=== PATIENT | male | born 1955 | race Caucasian/White ===

== ENCOUNTER 2020-02-23 18:26 | Inpatient (IN) ==
[2020-02-23] MEDS ORDERED: GLUCAGON FOR INJ 1 MG VIAL SQ PRN (21:45)
[2020-02-23] MEDS ORDERED: DEXTROSE 50% 50 ML SYRINGE IV PRN (21:45)
[2020-02-23] MEDS ORDERED: CARBOHYDRATES FOR HYPOGLYCEMIA PO PRN (21:45)
[2020-02-23] MEDS ORDERED: GLUCOSE 10 TABS/TUBE PO PRN (21:45)
[2020-02-23] MEDS ORDERED: GLUCOSE 40% GEL 15 GM TUBE PO PRN (21:45)
--- NOTE | 2020-02-23 21:59 | History & Physical Report ---
Date of Service February 23, 2020 Assessment & Plan (1) Diabetic peripheral neuropathy: Pt is a 64yo male with a PMHx of DMII with R BKA, CKD on peritoneal dialysis, chronic hyperphosphatemia, gout, myoconus and ?Hep C who presents as a transfer from [facility] with septic shock and the need for dialysis after presenting with weakness for the last 3 days. Sepsis -Per transfer note, pt required fluid bolus and pressor support at [facility], received doses of Rocephin and Vancomycin -Infectious source unclear: chest XR unremarkable except for cardiomegaly, Blood Cx drawn with no growth yet, urine uncollected, no diarrhea, 1 unhealing lesion on R BKA stump with mild erythema -On admission here, pt admits to dysuria, has small open lesion on R BKA stump, tachycardic, elevated WBC, normotensive -Chest XR from [facility]: "stable, moderate cardiomegaly with mild vascular congestion. Minimal interstitial pattern w/o consolidation or effusion" -UA pending with reflex culture -repeat blood Cx x2 ordered -lactate currently within normal limits, procalcitonin elevated at 1.85 -started on Daptomycin and Cefepime (renally dosed) for empiric treatment -wound care consult placed for R BKA stump lesion Acute on chronic CKD -Pt unsure of Cr baseline, states he does peritoneal dialysis at home himself every night -[facility] notes state Cr was 10.8 there, currently 11.4 on repeat here -Potassium WNL, Phosphorus elevated to 6.8 (see below) -started on NSS @ 80mls -nephrology consult placed Elevated Troponins -troponins currently elevated to 0.068, was WNL at [facility] -EKG with sinus tachycardia, ?first degree block -suspect increased trops secondary to demand ischemia in the setting of septic shock at [facility] -will trend trops q6h -echo pending -continue home aspirin 81mg, atorvastatin 20mg daily Macrocytosis -MCV >100 -pending AM folate and B12 levels Hyperphosphatemia -Phosphate elevated to 6.8 -continue home phosphate binders- calcium acetate 1334mg PO TID -sevelamer carbonate nonformulary DMII with R BKA -Pt states he uses insulin at home, question of compliance -Hx of R BKA in 2003 -HgbA1c pending -ISS -continue home gabapentin 800mg qhs for peripheral neuropathy ?Hep C noted on transfer paperwork -Liver enzymes WNL -Pt states he received Hepatitis shots due to his dialysis but does not believe he has this Hx -Hepatitis panel ordered with AM labs Hx of myoclonus -affects his hands mostly -continue home Keppra 250mg BID -follows with Dr. Reich Hx of gout -continue home allopurinol 100mg daily FEN/GI: NSS@80mls/hr, Dialysis/renal/lactose intolerant/DMII diet DVT prophylaxis: SCDs currently, consider heparin (given CKD) if Hgb improves CODE STATUS: Full Dispo: PCU/tele Admission and Anticipated Discharge Date Admission Date: February 23, 2020 History of Present Illness Primary Care Provider: RICK SHAIKH Pt is a 64yo male with a PMHx of DMII with R BKA, CKD on peritoneal dialysis, chronic hyperphosphatemia, gout, myoconus and ?Hep C who presents as a transfer from [facility] with septic shock and the need for dialysis after presenting with weakness for the last 3 days. Pt states he had been receiving PT recently and felt like his mobility had improved significantly as a result of that. However, for the last 3 days he has been feeling very weak and could not make it to the bathroom today so he presented to [facility]. States he has been having some dysuria with lower abdominal pain as well as this nonhealing ulcer on his right stump, has a right below the knee amputation. Has not taken his medications for the last day or so. Lives alone at home, moves around with his wheelchair. Unable to use his walker. States a close female friend checks in on him. No alcohol use, stopped smoking 23 years ago, no recreational drug use. Allergies Allergy/AdvReac Type Severity Reaction Status Date / Time amoxicillin [From Augmentin] Allergy Verified 12/08/19 11:45 clavulanic acid Allergy Verified 12/08/19 11:45 [From Augmentin] lactose Allergy Verified 12/08/19 11:45 morphine Allergy Verified 12/08/19 11:45 sulfamethoxazole Allergy Verified 12/08/19 11:45 [From Bactrim] trimethoprim [From Bactrim] Allergy Verified 12/08/19 11:45 primidone AdvReac Severe dizziness Verified 12/08/19 11:45 Home Medications Home Medications Medication Instructions Recorded Confirmed Type acetaminophen 325 mg capsule 650 mg PO ONCE PRN cap 04/06/19 12/08/19 History allopurinol 100 mg tablet 100 mg PO DAILY 04/06/19 12/08/19 History atorvastatin 20 mg tablet 20 mg PO DAILY 04/06/19 12/08/19 History pentoxifylline 400 mg 400 mg PO BID 04/06/19 12/08/19 History tablet,extended release vitamin B complex-vitamin C-folic 1 tab PO DAILY 04/06/19 12/08/19 History acid 0.8 mg tablet aspirin 81 mg tablet,delayed 81 mg PO DAILY 04/18/19 12/08/19 History release bisacodyl 5 mg PO DAILY 04/18/19 12/08/19 History calcium acetate(phosphat bind) 667 1,334 mg PO TID cap 04/18/19 12/08/19 History mg capsule gabapentin 800 mg tablet 800 mg PO HS tab 04/18/19 12/08/19 History insulin detemir U-100 100 unit/mL 30 - 40 units SQ .COMPLEX ml 04/18/19 12/08/19 History (3 mL) subcutaneous pen insulin lispro protamine-lispro 14 - 30 units SQ TID ml 04/18/19 12/08/19 History 100 unit/mL (50-50) subcutaneous susp sevelamer carbonate 800 mg tablet 800 mg PO TID 04/18/19 12/08/19 History sucroferric oxyhydroxide 500 mg 500 mg PO TID #270 tab 10/11/19 12/08/19 Rx chewable tablet nystatin 100,000 unit/gram topical 1 appln TOP TID #30 gm 01/03/20 Rx cream levetiracetam 500 mg tablet 250 mg PO BID tab 01/08/20 History Past Med/Surg History Medical History (Updated 02/24/20 @ 12:00 by Guerita Lozano MD) Amputation of right lower extremity below knee Anemia due to chronic kidney disease Back pain Diabetes Dialysis patient End-stage renal disease (ESRD) Gout Nerve pain Secondary hyperparathyroidism of renal origin Shoulder pain Surgical History S/P tonsillectomy Family History Grandmother (Paternal) Alzheimer disease Father Diabetes Other Prostate cancer Unknown family medical history Social History Smoking Status: Never smoker Hx Alcohol Use: No Hx Substance Use: No Preferred Language: Uzbek Barrel Assembler Required: No Beliefs That Will Affect Care: None Current Living Situation: Alone Feels Safe at Home: Yes Safety Concerns: Feels Safe At This Time Review of Systems Constitutional: + fever, + fatigue and + weakness; no chills and no sweats Eyes: no worsening vision Ear, Nose, Mouth, Throat: no nasal congestion and no sore throat Respiratory: + chest congestion and + dyspnea; no cough and no dyspnea on exertion Cardiovascular: no chest pain, no palpitations, no syncope and no edema Gastrointestinal: + abdominal pain; no nausea, no vomiting, no constipation, no diarrhea/loose stools and no blood in stools Genitourinary: + dysuria; no hematuria Musculoskeletal: + neck pain; no back pain Integumentary: + new lesions Neurologic: + tingling; no numbness, no headache(s) and no confusion Psychiatric: no confusion Endocrine: + fatigue Physical Exam Physical Exam: General: Alert, oriented. No acute distress, obese gentleman laying in bed. Skin: ulcer with noted fatty tissue exposed noted on R BKA stump Psych: Appropriate mood and affect Neuro: No gross deficits HEENT: NC/AT Chest: Nontender to palpation. CV: RRR, Normal s1, s2. No murmurs appreciated, sounds decreased due to habitus Resp: Breath sounds clear bilaterally but decreased due to habitus, no increased effort of breathing. Abdomen: Soft, tender in lower abdominal quadrants. No guarding. Extremities: R leg amputated below the knee Results & Data Results & Data ([facility]) Vital Signs (Past 12 Hours) Vital Signs Temp Pulse Resp BP Pulse Ox 02/23/20 20:55 37.6 C H 92 H 19 122/67 96 Supervising Physician Co-Signing Physician Notes Attending addendum: I have physically seen this patient, have supervised the medical residents activities, and agree with the H&P unless as otherwise noted. Assessment and Plan: Sepsis/unclear source, most likely renal- Follow urine culture and sensitivity Follow blood culture and sensitivity Empiric daptomycin and cefepime IV NSS at 80 mils per hour Peritoneal dialysis per her protocol. Continue sevelamer, sucroferric, vitamin B complex, and calcium acetate. Consult nephrology Diabetes mellitus- Hold standing orders for lispro Continue Levemir at reduced dosing 20 units subcu daily, until appetite verified. Placed on Accu-Cheks before meals and at bedtime with NovoLog coverage per scale Right stump lesion- Consulting wound care Elevated troponin- 0.068 upon admission. The patient will be admitted to telemetry for serial cardiac enzymes, serial EKG's, cardiac rhythm monitoring and a 2-D echocardiogram with Dopplers. Continue aspirin and atorvastatin. PAD- Continue pentoxifylline Remainder orders and notations as noted Resident Activity Tracking Resident Involvement: Resident Care Provided Care Provided: Adult Hospital Medicine
[2020-02-23 22:12] LABS: Basophils # (auto) 0.03 K/uL (0-0.2); Basophils % (auto) 0.2 %; Eosinophils # (auto) 0.06 K/uL (0-0.5); Eosinophils % (auto) 0.3 %; Hematocrit (blood only) 29.4 % (42-52); Immature Granulocytes # (auto) 0.08 K/uL (0.00-0.02); Immature Granulocytes % (auto) 0.5 %; Lymphocytes # (auto) 1.17 K/uL (1.2-3.4); Lymphocytes % (auto) 6.6 %; Mean Corpuscular Volume 102.8 fL (80-100); Mean Platelet Volume 10.1 fL (7.4-10.4); Monocytes # (auto) 1.22 K/uL (0.11-0.59); Monocytes % (auto) 6.9 %; Neutrophils # (auto) 15.18 K/uL (1.4-6.5); Neutrophils % (auto) 85.5 %; Platelet Count 192 K/uL (130-400); RDW Coefficient of Variation 14.3 % (11.5-14.5); RDW Standard Deviation 52.9 fL (36.4-46.3); Red Blood Count 2.86 M/uL (4.7-6.1); White Blood Count 17.74 K/uL (4.8-10.8)
[2020-02-23 22:15] LABS: Base Excess ABG -4.7 mEq/L (-9-1.8); HCO3 ABG 20 mmol/L (19-24); Oxygen Saturation ABG 93.1 % (90-95); PCO2 ABG 38 mmHg (35-46); PO2 ABG 76 mmHg (80-95); pH ABG 7.35 (7.35-7.45)
[2020-02-23 22:16] LABS: Allen Test POS (Pos)
[2020-02-23] MEDS ORDERED: DAPTOMYCIN CONSULT ACTIVE PRN (22:26)
[2020-02-23 22:48] LABS: Albumin Globulin Ratio 0.5 (0.9-2); Albumin Level 2.1 gm/dl (3.4-5.0); BUN Creatinine Ratio 7.7 (10-20); Bilirubin,Total 0.3 mg/dl (0.2-1); Calcium 9.8 mg/dl (8.5-10.1); Creatinine Clr Calc Pharmacy 9.5 ml/min; Est GFR (African American) 4.8; Est GFR (Non-African American) 4.1; Globulin 4.6 gm/dl (2.5-4.0); Magnesium 2.3 mg/dl (1.8-2.4); Phosphorus 6.8 mg/dl (2.5-4.9); Potassium 4.8 mmol/L (3.5-5.1); Total Protein 6.7 gm/dl (6.4-8.2); Troponin I 0.068 ng/ml (0-0.045)
[2020-02-23] MEDS ORDERED: DAPTOmycin 425 MG in SYRINGE 0 ML IV ONE (23:00)
[2020-02-23] MEDS ORDERED: CEFEPIME CONSULT ACTIVE PRN (23:29)
[2020-02-23] MEDS: SODIUM CHLORIDE 0.9% 1000ML 1,000 ML IV SCH (23:38)
[2020-02-23 23:54] LABS: Troponin I 0.075 ng/ml (0-0.045)
[2020-02-24 00:18] LABS: INR 1.1 (0.9-1.1); Prothrombin Time 11.1 Seconds (9.0-12.0)
[2020-02-24] MEDS ORDERED: ACETAMINOPHEN 500 MG TAB PO PRN (00:47)
[2020-02-24] MEDS ORDERED: POLYETHYLENE (MIRALAX) 17 GM PACK PO PRN (00:47)
[2020-02-24] MEDS ORDERED: MELATONIN 3 MG TAB PO PRN (00:47)
[2020-02-24 03:59] LABS: Basophils # (auto) 0.03 K/uL (0-0.2); Basophils % (auto) 0.2 %; Eosinophils # (auto) 0.09 K/uL (0-0.5); Eosinophils % (auto) 0.5 %; Hematocrit (blood only) 29.1 % (42-52); Hemoglobin 9.4 g/dL (14.0-18.0); Immature Granulocytes # (auto) 0.06 K/uL (0.00-0.02); Immature Granulocytes % (auto) 0.4 %; Lymphocytes # (auto) 1.73 K/uL (1.2-3.4); Lymphocytes % (auto) 10.3 %; Mean Corpuscular Hemoglobin 34.3 pg (25-34); Mean Corpuscular Hgb Conc 32.3 g/dL (32-36); Mean Corpuscular Volume 106.2 fL (80-100); Mean Platelet Volume 10.1 fL (7.4-10.4); Monocytes # (auto) 0.93 K/uL (0.11-0.59); Monocytes % (auto) 5.5 %; Neutrophils % (auto) 83.1 %; Platelet Count 182 K/uL (130-400); RDW Coefficient of Variation 14.3 % (11.5-14.5); RDW Standard Deviation 54.8 fL (36.4-46.3); Red Blood Count 2.74 M/uL (4.7-6.1); White Blood Count 16.84 K/uL (4.8-10.8)
[2020-02-24 04:29] LABS: BUN Creatinine Ratio 8.5 (10-20); Calcium 10.1 mg/dl (8.5-10.1); Creatinine Clr Calc Pharmacy 9.5 ml/min; Est GFR (African American) 4.8; Est GFR (Non-African American) 4.1; Potassium 4.7 mmol/L (3.5-5.1)
[2020-02-24 07:31] LABS: Estimated Average Glucose 192 mg/dl; Hemoglobin A1C 8.3 % (4.5-5.6)
[2020-02-24] MEDS ORDERED: CEFEPIME 2,000 MG in SYRINGE 7.5 ML IV SCH (08:00)
[2020-02-24 08:44] LABS: Hepatitis B Surface Antigen Neg (Neg)
[2020-02-24 09:02] LABS: Folate (Folic Acid) > 24.00 ng/ml (>5.38); Vitamin B12 691 pg/ml (211-911)
[2020-02-24] MEDS: ASPIRIN 81 MG ECTAB PO SCH (09:03)
[2020-02-24] MEDS: CALCIUM ACETATE 667 MG CAP/TAB PO SCH ×2 (09:03→11:56)
[2020-02-24] MEDS: ATORVASTATIN 20 MG TAB PO SCH (09:04)
[2020-02-24] MEDS: allopurinoL 100 MG TAB PO SCH (09:04)
[2020-02-24] MEDS: levETIRAcetam 250 MG TAB PO SCH ×3 (09:04→20:05)
[2020-02-24] MEDS: INSULIN ASPART 100 UNITS/ML 3 ML PEN SC SCH ×4 (09:05→20:07)
[2020-02-24 09:13] LABS: Hepatitis C IgG 13Yrs+Old_Rflx Neg (Neg)
[2020-02-24 09:24] LABS: Appearance Urine Turbid (Clear); Bilirubin Urine Negative (Negative); Blood Urine 3+ (Negative); Color Urine Red; Glucose Urine UA Trace (Negative); Ketones Urine Negative (Negative); Leukocyte Esterase Urine 1+ (Negative); Nitrite Urine Negative (Negative); Protein Urine 3+ (Negative); Urobilinogen Urine Negative (Negative)
[2020-02-24 09:30] LABS: RBC Urine >30 /hpf (0-4); WBC Urine >30 /hpf (0-5)
[2020-02-24 09:31] LABS: Bacteria Urine 1+ (Negative)
--- NOTE | 2020-02-24 09:59 | XCELERA ---
[id number]
[2020-02-24] MEDS ORDERED: Nursing to Pharmacy Communication SCH (11:45)
[2020-02-24] MEDS: SODIUM CHLORIDE 0.9% 1000ML 1,000 ML IV SCH (11:46)
--- NOTE | 2020-02-24 12:04 | Nephrology Consultation ---
Date of Consultation February 24, 2020 Assessment & Plan (1) End-stage renal disease (ESRD): ESRD on PD, admitted with generalized weakness, fever and concern for sepsis. Currently being treated with about broad-spectrum antibiotic, no clear source identified except small nonhealing ulcer at right BKA stump -- unlikely peritonitis as no significant abdominal pain, peritoneal effluent has been clear. -- will check PD fluid Gram stain and culture sensitivity -- start on peritoneal dialysis tonight as his regular schedule and prescription -- continue on phosphate binder -- discontinue IV fluid, dose medications for GFR less than 10 -- BHARATHI for hemoglobin less than 10 will follow Thank you for allowing me to participate in your patient's care. It was a pleasure to see Declan (2) Anemia due to chronic kidney disease: (3) Secondary hyperparathyroidism of renal origin: History of Present Illness Reason for Consultation: End-stage Kidney disease on peritoneal dialysis. Attending Physician: Brayden Gonzalez, DO History of Present Illness Declan Sanz is a 64-year-old gentlemen with past medical history significant for end-stage kidney disease on peritoneal dialysis, diabetes, hypertension left right BKA presented to the hospital with Generalized weakness. Nephrology consult was requested to manage peritoneal dialysis while inpatient. Declan presented to outside hospital 2 days ago with generalized weakness for 3 days. On admission he was found to be hypotensive and there was concern for sep tic shock with unclear source of infection. He has history of right BKA with nonhealing ulcer and that was considered as a presumed source of infection. he is currently on broad-spectrum antibiotic. Blood pressure seems to have stabilized. Chest x-ray unremarkable. Culture results are pending. Has end-stage kidney disease, has been on dialysis for last almost 3 years, most likely secondary to diabetic nephropathy. He has left brachiocephalic AV fistula. Was on hemodialysis for almost 3 years, switched to peritoneal dialysis since early 2019. has been doing dialysis regularly. Did have any problem with peritoneal dialysis recently, no history of peritonitis. Peritoneal dialysis effluent has been clear. No significant abdominal pain or constipation. History of right BKA. Allergies Allergy/AdvReac Type Severity Reaction Status Date / Time amoxicillin [From Augmentin] Allergy Verified 12/08/19 11:45 clavulanic acid Allergy Verified 12/08/19 11:45 [From Augmentin] lactose Allergy Verified 12/08/19 11:45 morphine Allergy Verified 12/08/19 11:45 sulfamethoxazole Allergy Verified 12/08/19 11:45 [From Bactrim] trimethoprim [From Bactrim] Allergy Verified 12/08/19 11:45 primidone AdvReac Severe dizziness Verified 12/08/19 11:45 Home Medications Home Medications Medication Instructions Recorded Confirmed Type acetaminophen 325 mg capsule 650 mg PO ONCE PRN cap 04/06/19 12/08/19 History allopurinol 100 mg tablet 100 mg PO DAILY 04/06/19 12/08/19 History atorvastatin 20 mg tablet 20 mg PO DAILY 04/06/19 12/08/19 History pentoxifylline 400 mg 400 mg PO BID 04/06/19 12/08/19 History tablet,extended release vitamin B complex-vitamin C-folic 1 tab PO DAILY 04/06/19 12/08/19 History acid 0.8 mg tablet aspirin 81 mg tablet,delayed 81 mg PO DAILY 04/18/19 12/08/19 History release bisacodyl 5 mg PO DAILY 04/18/19 12/08/19 History calcium acetate(phosphat bind) 667 1,334 mg PO TID cap 04/18/19 12/08/19 History mg capsule gabapentin 800 mg tablet 800 mg PO HS tab 04/18/19 12/08/19 History insulin detemir U-100 100 unit/mL 30 - 40 units SQ .COMPLEX ml 04/18/19 12/08/19 History (3 mL) subcutaneous pen insulin lispro protamine-lispro 14 - 30 units SQ TID ml 04/18/19 12/08/19 History 100 unit/mL (50-50) subcutaneous susp sevelamer carbonate 800 mg tablet 800 mg PO TID 04/18/19 12/08/19 History sucroferric oxyhydroxide 500 mg 500 mg PO TID #270 tab 10/11/19 12/08/19 Rx chewable tablet nystatin 100,000 unit/gram topical 1 appln TOP TID #30 gm 01/03/20 Rx cream levetiracetam 500 mg tablet 250 mg PO BID tab 01/08/20 History Patient History Medical History (Updated 02/24/20 @ 12:00 by Guerita Lozano MD) Amputation of right lower extremity below knee Anemia due to chronic kidney disease Back pain Diabetes Dialysis patient End-stage renal disease (ESRD) Gout Nerve pain Secondary hyperparathyroidism of renal origin Shoulder pain Surgical History S/P tonsillectomy Family History Grandmother (Paternal) Alzheimer disease Father Diabetes Other Prostate cancer Unknown family medical history Social History Smoking Status: Never smoker Hx Alcohol Use: No Hx Substance Use: No Preferred Language: Macedonian Blending Coordinator Required: No Beliefs That Will Affect Care: None Current Living Situation: Alone Feels Safe at Home: Yes Safety Concerns: Feels Safe At This Time Review of Systems Review of Systems: All systems reviewed & are unremarkable except as noted in HPI & below Physical Exam Constitutional: WD/WN, vitals as above no acute distress Eyes: PERRL, conjunctivae normal, anicteric sclerae ENMT: external ear and nose normal, oropharynx normal Ears: no hearing impairment Neck: trachea midline Respiratory: normal respiratory effort, lungs clear to auscultation no cough Auscultation: no crackles, no rales and no wheezes Cardiovascular: RRR, no murmur, no edema Extremities: + AV fistula ( L BC AVF with thrill and bruit. PD cath site clean, no tenderness) Gastrointestinal (Abdomen): normal bowel sounds, soft, nontender, no hepato splenomegaly Percussion/Palpation: abdomen nontender, no guarding and abdomen not rigid Musculoskeletal: Rt BKA Skin: no rashes, warm and dry Neurologic: moves all extremities and awake Psychiatric: A+Ox3, euthymic affect Results & Data ([facility]) Vital Signs (Past 12 Hours) Vital Signs Temp Pulse Pulse Pulse Resp BP BP 02/24/20 11:10 37.9 C H 100 H 20 115/75 02/24/20 08:00 93 H 02/24/20 07:52 36.8 C 100 H 20 111/60 02/24/20 04:06 36.9 C 97 H 18 109/56 L 02/23/20 23:58 37.1 C 106 H 20 106/71 Pulse Ox 02/24/20 11:10 92 02/24/20 08:00 02/24/20 07:52 98 02/24/20 04:06 96 02/23/20 23:58 99 PG Care Time/CCT Total # of Minutes Spent Total Time Spent with Patient: Total time spent is greater than 50% in coordination of care (as documented) at patient's floor/unit and/or counseling patient: Coding Level of Care Code 05859 Inpt Consult Level 5 Diagnoses End-stage renal disease (ESRD) N18.6 Anemia due to chronic kidney disease N18.9; D63.1 Secondary hyperparathyroidism of renal origin N25.81
[2020-02-24 14:31] LABS: Appearance Peritoneal Fluid CLEAR; Basophils, Fluid 0 %; Color Peritoneal Fluid YELLOW; Eosinophils, Fluid 0 %; Lymphocytes, Fluid 6 %; Mono,Macrophage,Mesothelial 49 %; Neutrophils, Fluid 45 %; RBC Peritoneal Fluid (A) < 3000 /uL; WBC Peritoneal Fluid (A) 295 /ul (0-300)
[2020-02-24 15:19] LABS: Hepatitis B Surface Ab Quant 481.96 mIU/mL (>or=10mIU/mL Immune); Hepatitis B Surface Antibody Immune
--- NOTE | 2020-02-24 15:54 | Hospitalist Progress Note ---
Date of Service February 24, 2020 Assessment & Plan (1) Diabetic peripheral neuropathy: Patient is a 64yo male with a PMHx of DMII with R BKA, CKD on peritoneal dialysis, chronic hyperphosphatemia, and gout who presents as a transfer from [facility] with septic shock and the need for dialysis after presenting with weakness for the last 3 days. Clinically improving but without clear source of infection. Will consider discharge upon continued clinical improvement, downtrending WBCs, adequate PO intake, and strength/ability to perform ADLs (likely sometime early next week). Sepsis -per transfer note, pt required fluid bolus and pressor support at [facility], received doses of rocephin and vancomycin -infectious source seems likely to be UTI; UA was dirty, urine culture and sensitivities pending -other infectious source investigation: chest XR unremarkable except for cardiomegaly, blood cultures drawn with no growth yet, no diarrhea, 1 unhealing lesion on R BKA stump with mild erythema -on admission here, pt admits to dysuria, has small open lesion on R BKA stump, tachycardic, elevated WBC, normotensive -f/u blood cultures -lactate currently within normal limits, procalcitonin elevated at 1.85 -started on daptomycin and cefepime (renally dosed) for empiric treatment, planning to narrow treatment upon return of cultures/sensitivities -wound care consult placed for R BKA stump lesion Acute on chronic CKD -patient unsure of Cr baseline, states he does peritoneal dialysis at home himself every night -[facility] notes state Cr was 10.8 there, currently 11.4 on repeat here -potassium WNL, Phosphorus elevated to 6.8 (see below) -nephrology consult recommended starting peritoneal dialysis tonight Elevated troponins -troponins elevated on admission to 0.075, then downtrended to 0.056 -EKG with sinus tachycardia without signs of ischemia -suspect increased troponin secondary to demand ischemia in the setting of septic shock at [facility] -continue home aspirin 81mg, atorvastatin 20mg daily Macrocytosis -MCV >100 -pending AM folate and B12 levels Hyperphosphatemia -phosphate elevated to 6.8 -continue home phosphate binders- calcium acetate 1334mg PO TID -sevelamer carbonate nonformulary DMII with R BKA -patient states he uses insulin at home, question of compliance -Hx of R BKA in 2003 -HgbA1c pending -ISS -lantus 10 units bid, will reassess glucose control in the morning -continue home gabapentin 800mg qhs for peripheral neuropathy Question of Hep C noted on transfer paperwork -liver enzymes WNL -patient reports he received hepatitis shots due to his dialysis but does not believe he has this history -awaiting full results of hepatitis panel History of myoclonus -affects his hands -continue home Keppra 250mg bid -follows with Dr. Reich History of gout -continue home allopurinol 100mg qd FEN/GI: NSS@80mls/hr, dialysis/renal/lactose intolerant/DMII diet DVT prophylaxis: SCDs currently, consider heparin (given CKD) if Hgb improves CODE STATUS: full code Dispo: PCU/tele Present on Admission?: Yes Admission and Anticipated Discharge Date Admission Date: February 23, 2020 Supervising Physician Co-Signing Physician Notes I personally examined the patient and verified all cr points of history and exam, discussed case, and agree with decision making with Dr Wolfe. feeling much better, stronger notes he did have dysuria for ?a week or so prior to getting so weak viatls noted nad heent nc at mmm R stump ulcer present but no surrounding erythema no abdominal tenderness breathing unlabored no conversational dyspnea sepsis - most likely UTI given sx + UA, no other areas seem suspicious. until fluid can be checked just because sometimes peritonitis can be sutble - will keep dapto plus cefepime, but once that has been checked, probably can drop to gram negative coverage only - await urine culture stump ulcer - appears that local wound care appropriate for this- would want outpt wound clinic set up otherwise as above Subjective Patient feels "better" this morning compared to yesterday and overnight. Reports abdominal pressure / mild pain which he attributes to abdominal fullness 2/2 delayed peritoneal dialysis. Reports he undergoes peritoneal dialysis nightly from home. Also endorses right shoulder and left knee pain although he says this is unchanged from his baseline. Denies chest pain, shortness of breath, lightheadedness, dizziness, nausea, vomiting, fever, sweats, chills, or other symptoms. Review of Systems Constitutional: no fever, no chills and no sweats Cardiovascular: no chest pain, no dyspnea and no palpitations Gastrointestinal: + abdominal pain (mild generalized abdominal pressure); no nausea, no vomiting, no constipation and no diarrhea/loose stools Physical Exam Constitutional: + well hydrated and + obese; no acute distress Respiratory: normal respiratory effort; no labored breathing Auscultation: lungs clear to auscultation bilaterally Cardiovascular: Rate/Rhythm: regular rhythm Heart Sounds: no murmur Gastrointestinal (Abdomen): Inspection/Auscultation: normal bowel sounds; abdomen not distended Percussion/Palpation: + abdomen tender (mild generalized tenderness (2/2 needing peritoneal dialysis, per patient)) Skin: Mild rash appreciated underneath pannus; clean, dry bandage on distal end of stump over reported nonhealing ulcer Psychiatric: A+Ox3, euthymic affect Results & Data Results & Data ([facility]) Vital Signs (Past 12 Hours) Vital Signs Temp Pulse Pulse Pulse Resp BP Pulse Ox 02/24/20 15:26 36.6 C 99 H 17 104/68 97 02/24/20 11:10 37.9 C H 100 H 20 115/75 92 02/24/20 08:00 93 H 02/24/20 07:52 36.8 C 100 H 20 111/60 98 02/24/20 04:06 36.9 C 97 H 18 109/56 L 96 Resident Activity Tracking Resident Involvement: Resident Care Provided Care Provided: Adult Hospital Medicine
[2020-02-24] MEDS ORDERED: SEVELAMER HCL 800 MG TABLET PO SCH (17:00)
[2020-02-24] MEDS ORDERED: EPOETIN ALFA 20,000 UNITS/ML VIAL SQ ONE (17:00)
--- NOTE | 2020-02-24 18:17 | Billing Data ---
Date of Service February 24, 2020 Coding Level of Care Code 07151 Subseq Hosp Care Lvl 3
[2020-02-24] MEDS: GABAPENTIN 800 MG TAB PO SCH (20:06)
[2020-02-24] MEDS: INSULIN GLARGINE SOLOSTAR 100 UNITS/ML 3 ML PEN SC SCH (20:07)
--- NOTE | 2020-02-25 03:03 | Billing Data ---
Date of Service February 25, 2020 Coding Level of Care Code 62640 Initial Inpt Care Lvl 3
[2020-02-25 04:26] LABS: Hepatitis A Antibody IgM NON-REACTIVE (NON-REACTIVE); Hepatitis B Core Antibody IgM NON-REACTIVE (NON-REACTIVE)
[2020-02-25 06:04] LABS: Basophils # (auto) 0.02 K/uL (0-0.2); Basophils % (auto) 0.2 %; Eosinophils # (auto) 0.16 K/uL (0-0.5); Eosinophils % (auto) 1.2 %; Hematocrit (blood only) 28.9 % (42-52); Hemoglobin 9.6 g/dL (14.0-18.0); Immature Granulocytes # (auto) 0.07 K/uL (0.00-0.02); Immature Granulocytes % (auto) 0.5 %; Lymphocytes # (auto) 1.19 K/uL (1.2-3.4); Lymphocytes % (auto) 9.2 %; Mean Corpuscular Hgb Conc 33.2 g/dL (32-36); Mean Corpuscular Volume 102.5 fL (80-100); Mean Platelet Volume 9.8 fL (7.4-10.4); Monocytes # (auto) 0.89 K/uL (0.11-0.59); Monocytes % (auto) 6.9 %; Neutrophils # (auto) 10.61 K/uL (1.4-6.5); Platelet Count 177 K/uL (130-400); RDW Coefficient of Variation 14.3 % (11.5-14.5); RDW Standard Deviation 53.5 fL (36.4-46.3); Red Blood Count 2.82 M/uL (4.7-6.1); White Blood Count 12.94 K/uL (4.8-10.8)
[2020-02-25 07:00] LABS: BUN Creatinine Ratio 7.9 (10-20); Calcium 9.6 mg/dl (8.5-10.1); Creatinine Clr Calc Pharmacy 9.3 ml/min; Est GFR (African American) 4.6; Potassium 4.1 mmol/L (3.5-5.1)
--- NOTE | 2020-02-25 07:20 | Hospitalist Progress Note ---
Date of Service February 25, 2020 Assessment & Plan (1) Diabetic peripheral neuropathy: Patient is a 64yo male with a PMHx of DMII with R BKA, CKD on peritoneal dialysis, chronic hyperphosphatemia, and gout who presents as a transfer from [facility] with septic shock and the need for dialysis after presenting with weakness for the last 3 days. Clinically improving with treatment of his UTI. Remains weak but is participating well with PT/OT.. Sepsis -received fluid bolus, pressor support, rocephin, and vancomycin at [facility] -infectious source seems likely to be UTI -WBC downtrending from 16.8 yesterday to 12.9 today -started on daptomycin and cefepime (renally dosed) for empiric treatment, planning to narrow treatment upon return of cultures/sensitivities -wound care consult placed for R BKA stump lesion -f/u blood cultures, peritoneal fluid cultures, urine cultures -PT/OT consult Acute on chronic CKD -patient unsure of creatinine baseline, states he does peritoneal dialysis at home himself every night -[facility] notes state creatinine was 10.8 there -creatinine increased from 11.4 (02/23) to 11.8 (02/24) overnight Elevated troponins -troponins elevated on admission to 0.075, then downtrended to 0.041 -EKG with sinus tachycardia without signs of ischemia -suspect increased troponin secondary to demand ischemia in the setting of septic shock at [facility] -continue home aspirin 81mg, atorvastatin 20mg daily -echo obtained, awaiting read Macrocytosis -MCV >100 -pending folate and B12 levels Hyperphosphatemia -phosphate elevated to 6.8 -continue home phosphate binders- calcium acetate 1334mg PO TID -sevelamer carbonate nonformulary DMII with R BKA -patient states he uses insulin at home, question of compliance -history of R BKA in 2003 -HgbA1c 8.3 -ISS with a carb control ratio of 7 -lantus 15 units bid, will reassess glucose control -continue home gabapentin 800mg qhs for peripheral neuropathy Question of hepatitis C noted on transfer paperwork -liver enzymes WNL -patient reports he received hepatitis shots due to his dialysis but does not believe he has this history -awaiting full results of hepatitis panel History of myoclonus, 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 Reich History of gout -continue home allopurinol 100mg qd FEN/GI: NSS@80mls/hr, dialysis/renal/lactose intolerant/DMII diet DVT prophylaxis: SCDs currently, consider heparin (given CKD) if Hgb improves CODE STATUS: full code Dispo: PCU/tele Admission and Anticipated Discharge Date Admission Date: February 23, 2020 Supervising Physician Co-Signing Physician Notes I personally examined the patient and verified all cr points of history and exam, discussed case, and agree with decision making with Dr Wolfe. feeling better but still quite weak. is hoping that he'll improve and not need rehab but understands that could be the case. viatls noted nad heent nc at mmm breathing unlabored no conversational dyspnea no accessory msucles sepsis - most likely UTI given sx + UA, no other areas seem suspicious. abx started long before urine sent (not collected at [facility]) - so empiric regimen. stump ulcer - appears that local wound care appropriate for this- would want outpt wound clinic set up otherwise as above, stable for medical. PT/OT eval and treat. home vs rehab ~1-2 days depending on ongoing clinical progress Subjective Patient received dialysis at 18:30 yesterday and was reportedly asymptomatic during the evening (per nursing notes) and had no acute events overnight. Patient's glucose levels were poorly controlled over the past 24h, with levels between 236 and 279 yesterday, and his first reading this morning being 335 (at 05:51). He received 29u of aspart yesterday in addition to his evening dose of 10u lantus bid, which was his first dose of lantus during this hospital stay. Review of Systems Constitutional: + fatigue; no fever, no chills and no sweats Respiratory: no cough, no dyspnea and no wheezing Cardiovascular: no chest pain, no dyspnea and no palpitations Gastrointestinal: no abdominal pain, no nausea and no vomiting Physical Exam Constitutional: well developed and + obese; no acute distress and not ill appearing Respiratory: normal respiratory effort, lungs clear to auscultation Cardiovascular: Rate/Rhythm: regular rate and regular rhythm Heart Sounds: no murmur Gastrointestinal (Abdomen): Inspection/Auscultation: normal bowel sounds; abdomen not distended Percussion/Palpation: + abdomen tender (mild abdominal tenderness) and abdomen soft; no guarding, abdomen not rigid and no hepatosplenomegaly Results & Data Results & Data ([facility]) Vital Signs (Past 12 Hours) Vital Signs Temp Pulse Pulse Resp BP BP Pulse Ox 02/25/20 03:58 36.8 C 103 H 21 108/70 96 02/24/20 23:42 36.9 C 105 H 18 127/70 95 02/24/20 19:24 37.0 C 102 H 17 92/60 L 97 Resident Activity Tracking Resident Involvement: Resident Care Provided Care Provided: Adult Hospital Medicine
[2020-02-25 07:22] LABS: Beta-Hydroxybutyrate 0.84 mg/dl (0.2-2.81)
[2020-02-25] MEDS ORDERED: CEFEPIME 1,000 MG in SYRINGE 0 ML IV SCH (08:00)
[2020-02-25] MEDS: allopurinoL 100 MG TAB PO SCH (08:45)
[2020-02-25] MEDS: ATORVASTATIN 20 MG TAB PO SCH (08:45)
[2020-02-25] MEDS: INSULIN GLARGINE SOLOSTAR 100 UNITS/ML 3 ML PEN SC SCH ×2 (08:45→21:10)
[2020-02-25] MEDS: ASPIRIN 81 MG ECTAB PO SCH (08:45)
[2020-02-25] MEDS: SEVELAMER HCL 800 MG TABLET PO SCH ×3 (08:45→17:00)
[2020-02-25] MEDS: levETIRAcetam 250 MG TAB PO SCH ×2 (08:46→21:08)
[2020-02-25] MEDS: INSULIN ASPART 100 UNITS/ML 3 ML PEN SC SCH ×4 (08:47→21:10)
--- NOTE | 2020-02-25 10:26 | Nephrology Progress Note ---
Date of Service February 25, 2020 Assessment & Plan (1) End-stage renal disease (ESRD): ESRD on PD, admitted with generalized weakness, fever and concern for sepsis. Currently being treated with about broad-spectrum antibiotic, no clear source identified except small nonhealing ulcer at right BKA stump. No peritonitis, PD fluid clear, no growth -- Start on Miralax -- continue peritoneal dialysis tonight as his regular schedule and prescription -- start Renvela instead of PhosLo as phosphate binder, has mild hypercalcemia -- left arm precaution ( has AVf) dose medications for GFR less than 10 -- BHARATHI 54781 units x 1 dose will follow (2) Anemia due to chronic kidney disease: (3) Secondary hyperparathyroidism of renal origin: Admission and Anticipated Discharge Date Admission Date: February 23, 2020 Yovanny Manriquez was seen and examined this am with family at bedside. Overall doing better. C/O constipation but no N/V, F/C, SOB, CP, abdominal pain. Review of Systems Review of Systems: All systems reviewed & are unremarkable except as noted in HPI & below Physical Exam Constitutional: well developed and well nourished; no acute distress Respiratory: normal respiratory effort, lungs clear to auscultation Cardiovascular: RRR, no murmur, no edema Musculoskeletal: rt BKA Neurologic: moves all extremities and awake; not confused Psychiatric: A+Ox3, euthymic affect Results & Data ([facility]) Vital Signs (Past 12 Hours) Vital Signs Temp Pulse Pulse Pulse Resp BP BP 02/25/20 09:12 36.6 C 97 H 19 02/25/20 08:00 97 H 02/25/20 07:17 36.6 C 97 H 19 117/71 02/25/20 03:58 36.8 C 103 H 21 108/70 02/24/20 23:42 36.9 C 105 H 18 127/70 Pulse Ox 02/25/20 09:12 02/25/20 08:00 02/25/20 07:17 98 02/25/20 03:58 96 02/24/20 23:42 95 PG Care Time/CCT Total # of Minutes Spent Total Time Spent with Patient: Total time spent is greater than 50% in coordination of care (as documented) at patient's floor/unit and/or counseling patient: Coding Level of Care Code 44119 Subseq Hosp Care Lvl 3 Diagnoses End-stage renal disease (ESRD) N18.6 Anemia due to chronic kidney disease N18.9; D63.1 Secondary hyperparathyroidism of renal origin N25.81
[2020-02-25] MEDS: POLYETHYLENE (MIRALAX) 17 GM PACK PO SCH (11:57)
[2020-02-25] MEDS ORDERED: INSULIN GLARGINE SOLOSTAR 100 UNITS/ML 3 ML PEN SC ONE (12:00)
--- NOTE | 2020-02-25 19:13 | Billing Data ---
Date of Service February 25, 2020 Coding Level of Care Code 52305 Subseq Hosp Care Lvl 3
[2020-02-25] MEDS: GABAPENTIN 800 MG TAB PO SCH (21:09)
[2020-02-26] MEDS ORDERED: DAPTOmycin 425 MG in SYRINGE 0 ML IV SCH
[2020-02-26 06:51] LABS: Basophils # (auto) 0.02 K/uL (0-0.2); Basophils % (auto) 0.2 %; Eosinophils # (auto) 0.21 K/uL (0-0.5); Eosinophils % (auto) 2.2 %; Hematocrit (blood only) 28.2 % (42-52); Hemoglobin 9.3 g/dL (14.0-18.0); Immature Granulocytes # (auto) 0.09 K/uL (0.00-0.02); Immature Granulocytes % (auto) 0.9 %; Lymphocytes # (auto) 1.27 K/uL (1.2-3.4); Lymphocytes % (auto) 13.2 %; Mean Corpuscular Hemoglobin 33.8 pg (25-34); Mean Corpuscular Volume 102.5 fL (80-100); Mean Platelet Volume 9.8 fL (7.4-10.4); Monocytes # (auto) 1.01 K/uL (0.11-0.59); Monocytes % (auto) 10.5 %; Platelet Count 178 K/uL (130-400); RDW Coefficient of Variation 14.4 % (11.5-14.5); RDW Standard Deviation 52.9 fL (36.4-46.3); Red Blood Count 2.75 M/uL (4.7-6.1)
[2020-02-26 07:33] LABS: BUN Creatinine Ratio 8.1 (10-20); Calcium 9.6 mg/dl (8.5-10.1); Creatinine Clr Calc Pharmacy 9.4 ml/min; Est GFR (African American) 4.6; Potassium 4.2 mmol/L (3.5-5.1)
[2020-02-26] MEDS: INSULIN ASPART 100 UNITS/ML 3 ML PEN SC SCH ×4 (08:09→21:19)
[2020-02-26] MEDS: INSULIN GLARGINE SOLOSTAR 100 UNITS/ML 3 ML PEN SC SCH ×2 (08:10→21:18)
[2020-02-26] MEDS: allopurinoL 100 MG TAB PO SCH (08:10)
[2020-02-26] MEDS: levETIRAcetam 250 MG TAB PO SCH ×3 (08:10→21:25)
[2020-02-26] MEDS: ATORVASTATIN 20 MG TAB PO SCH (08:10)
[2020-02-26] MEDS: ASPIRIN 81 MG ECTAB PO SCH (08:10)
[2020-02-26] MEDS: SEVELAMER HCL 800 MG TABLET PO SCH ×3 (08:11→17:44)
[2020-02-26] MEDS: CEFEPIME 1,000 MG in SYRINGE 0 ML IV SCH (08:25)
--- NOTE | 2020-02-26 08:34 | Electrocardiogram Report ---
Test Reason : Blood Pressure : / mmHG Vent. Rate : 103 BPM Atrial Rate : 103 BPM P-R Int : 248 ms QRS Dur : 082 ms QT Int : 342 ms P-R-T Axes : 000 027 033 degrees QTc Int : 448 ms Sinus tachycardia with 1st degree A-V block Cannot rule out Old Septal infarct Abnormal ECG No previous ECGs available Confirmed by Frederick Peralta ([id number]) on 02/26/2020 8:34:38 AM Referred By: Michael Aaron Confirmed By:Frederick Peralta
[2020-02-26] MEDS: POLYETHYLENE (MIRALAX) 17 GM PACK PO SCH (09:34)
--- NOTE | 2020-02-26 11:12 | Nephrology Progress Note ---
Date of Service February 26, 2020 Assessment & Plan (1) End-stage renal disease (ESRD): ESRD on PD, admitted with generalized weakness, fever and concern for sepsis. Currently being treated with about broad-spectrum antibiotic, no clear source identified except small nonhealing ulcer at right BKA stump. No peritonitis, PD fluid clear, no growth Clinically otherwise stable, blood culture and urine culture so far unremarkable. PD fluid clear, no sign of peritonitis. -- continue peritoneal dialysis tonight as his regular schedule and prescription -- Continue Renvela as phosphate binder, has mild hypercalcemia -- left arm precaution ( has AVF) dose medications for GFR less than 10 -- BHARATHI 65708 units x 1 dose given on 02/25/2020 -- waiting on antibiotic decision and possible rehab discharge. will follow (2) Anemia due to chronic kidney disease: (3) Secondary hyperparathyroidism of renal origin: Admission and Anticipated Discharge Date Admission Date: February 23, 2020 Yovanny Manriquez was seen and examined this am.. Overall doing better, no N/V, F/C, SOB, CP, abdominal pain. Review of Systems Review of Systems: All systems reviewed & are unremarkable except as noted in HPI & below Physical Exam Constitutional: WD/WN, vitals as above well developed and well nourished; no acute distress Respiratory: normal respiratory effort, lungs clear to auscultation no cough Auscultation: no crackles, no rales and no wheezes Cardiovascular: RRR, no murmur, no edema Extremities: + AV fistula ( L BC AVF with thrill and bruit. PD cath site clean, no tenderness) Skin: no rashes, warm and dry Neurologic: moves all extremities and awake; not confused Psychiatric: A+Ox3, euthymic affect Results & Data ([facility]) Vital Signs (Past 12 Hours) Vital Signs Temp Pulse Pulse Resp BP BP Pulse Ox 02/26/20 09:24 36.5 C 97 H 16 119/67 99 02/26/20 07:56 36.8 C 94 H 94 H 90/49 L 93 02/26/20 07:35 36.4 C L 94 H 16 02/26/20 04:36 84/55 L 02/26/20 03:20 36.4 C L 89 16 83/58 L 97 PG Care Time/CCT Total # of Minutes Spent Total Time Spent with Patient: Total time spent is greater than 50% in coordination of care (as documented) at patient's floor/unit and/or counseling patient: Coding Level of Care Code 80967 Subseq Hosp Care Lvl 3 Diagnoses End-stage renal disease (ESRD) N18.6 Anemia due to chronic kidney disease N18.9; D63.1 Secondary hyperparathyroidism of renal origin N25.81
--- NOTE | 2020-02-26 16:45 | Hospitalist Progress Note ---
Date of Service February 26, 2020 Assessment & Plan (1) Diabetic peripheral neuropathy: Patient is a 64yo male with a PMHx of DMII with R BKA, CKD on peritoneal dialysis, chronic hyperphosphatemia, and gout who presents as a transfer from [facility] with septic shock and the need for dialysis after presenting with weakness for the last 3 days. Clinically improving with treatment of his UTI. Remains weak but is participating well with PT/OT.. Sepsis - received fluid bolus, pressor support, rocephin, and vancomycin at [facility] - infectious source seems likely to be UTI - WBC downtrending from 12.94 yesterday to 9.60 today - blood and urine cultures negative. Urine culture drawn long before the antibiotics were given. - on cefepime 1000mg IV q24h R BKA stump lesion - history of R BKA in 2003 - lesion precludes patient from comfortably using prosthetic leg - lesion with whitish non-viable tissue - Wound care consulted and provided patient with appropriate instructions - Unlikely to be source of sepsis ESRD - patient states he does peritoneal dialysis at home himself every night - nephrology suggested continue dialysis, continue Renvela Elevated troponins - troponins elevated on admission to 0.075, then downtrended to 0.041 - EKG with sinus tachycardia without signs of ischemia - suspect increased troponin secondary to demand ischemia in the setting of septic shock at [facility] - continue home aspirin 81mg, atorvastatin 20mg daily - echo: normal LV function, EF 60-65%, mild LVH, mitral annular calcification, possibility of significant mitral regurgitation Macrocytosis - MCV >100 - B12 & folate normal Hyperphosphatemia - phosphate elevated to 6.8 - continue home phosphate binders- calcium acetate 1334mg PO TID - sevelamer carbonate nonformulary DMII - patient states he uses insulin at home, question of compliance - HgbA1c 8.3 - ISS with a carb control ratio of 7 - lantus 15 units bid, will reassess glucose control - continue home gabapentin 800mg qhs for peripheral neuropathy Question of hepatitis C noted on transfer paperwork - liver enzymes WNL - patient reports he received hepatitis shots due to his dialysis but does not believe he has this history - hepatitis panel negative History of myoclonus, 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 Reich History of gout - continue home allopurinol 100mg qd FEN/GI: dialysis/renal/lactose intolerant/DMII diet DVT prophylaxis: SCDs currently, add heparin CODE STATUS: full code Dispo: PCU/tele - PT/OT recommend SNF--currently awaiting placement Admission and Anticipated Discharge Date Admission Date: February 23, 2020 Supervising Physician Co-Signing Physician Notes Resident Physician Supervision Note: I independently interviewed and examined the patient and verified the cr history and physical, reviewed labs and image studies, discussed the case with the resident Dr. Bey and agree with the findings and care plan. Subjective Patient was seen at bedside this morning and reports feeling well. Reports some continued weakness but feels stronger today. Says he has improved significantly and feels that he is ready to leave the hospital. Has some discomfort on his right stump due to the lesion, and says his prosthetic leg chafes his sometimes. Otherwise no complaints. Denies fever, chills, CP, palpitations, SOB, cough. Review of Systems Constitutional: + weakness; no fever, no chills and no fatigue Respiratory: no cough, no dyspnea and no wheezing Cardiovascular: no chest pain, no palpitations and no lightheadedness Gastrointestinal: no nausea and no vomiting Physical Exam Constitutional: WD/WN, vitals as above + obese; no acute distress Respiratory: normal respiratory effort, lungs clear to auscultation normal respiratory effort; no labored breathing, no retractions and does not use accessory muscles Cardiovascular: RRR, no murmur, no edema Heart Sounds: normal S1 and normal S2 Gastrointestinal (Abdomen): normal bowel sounds, soft, nontender, no hepatosplenomegaly Results & Data Results & Data ([facility]) Vital Signs (Past 12 Hours) Vital Signs Temp Pulse Pulse Resp BP BP Pulse Ox 02/26/20 09:24 36.5 C 97 H 16 119/67 99 02/26/20 07:56 36.8 C 94 H 94 H 90/49 L 93 02/26/20 07:35 36.4 C L 94 H 16 02/26/20 04:36 84/55 L Resident Activity Tracking Resident Involvement: Resident Care Provided Care Provided: Adult Hospital Medicine
[2020-02-26] MEDS: HEPARIN SOD 5,000 UNIT/0.5 ML VIAL SQ SCH (21:17)
[2020-02-26] MEDS: GABAPENTIN 800 MG TAB PO SCH (21:17)
[2020-02-27 06:26] LABS: Basophils # (auto) 0.05 K/uL (0-0.2); Basophils % (auto) 0.5 %; Eosinophils # (auto) 0.18 K/uL (0-0.5); Eosinophils % (auto) 1.9 %; Hematocrit (blood only) 30.6 % (42-52); Immature Granulocytes # (auto) 0.12 K/uL (0.00-0.02); Immature Granulocytes % (auto) 1.3 %; Lymphocytes # (auto) 0.89 K/uL (1.2-3.4); Lymphocytes % (auto) 9.4 %; Mean Corpuscular Hemoglobin 33.3 pg (25-34); Mean Corpuscular Hgb Conc 32.7 g/dL (32-36); Mean Platelet Volume 10.7 fL (7.4-10.4); Monocytes # (auto) 1.02 K/uL (0.11-0.59); Monocytes % (auto) 10.8 %; Neutrophils # (auto) 7.17 K/uL (1.4-6.5); Neutrophils % (auto) 76.1 %; Platelet Count 205 K/uL (130-400); RDW Coefficient of Variation 14.1 % (11.5-14.5); RDW Standard Deviation 52.2 fL (36.4-46.3); White Blood Count 9.43 K/uL (4.8-10.8)
[2020-02-27 07:17] LABS: BUN Creatinine Ratio 8.9 (10-20); Calcium 9.9 mg/dl (8.5-10.1); Creatinine Clr Calc Pharmacy 9.9 ml/min; Est GFR (African American) 4.9; Est GFR (Non-African American) 4.3; Potassium 4.1 mmol/L (3.5-5.1)
[2020-02-27 07:32] LABS: Beta-Hydroxybutyrate 0.68 mg/dl (0.2-2.81)
[2020-02-27] MEDS: SEVELAMER HCL 800 MG TABLET PO SCH ×3 (09:35→18:05)
[2020-02-27] MEDS: CEFEPIME 1,000 MG in SYRINGE 0 ML IV SCH (09:35)
[2020-02-27] MEDS: levETIRAcetam 250 MG TAB PO SCH ×2 (09:37→21:14)
[2020-02-27] MEDS: ATORVASTATIN 20 MG TAB PO SCH ×2 (09:38→21:14)
[2020-02-27] MEDS: ASPIRIN 81 MG ECTAB PO SCH (09:38)
[2020-02-27] MEDS: allopurinoL 100 MG TAB PO SCH (09:38)
[2020-02-27] MEDS: POLYETHYLENE (MIRALAX) 17 GM PACK PO SCH ×3 (09:41→21:19)
[2020-02-27] MEDS: HEPARIN SOD 5,000 UNIT/0.5 ML VIAL SQ SCH ×2 (09:48→21:14)
[2020-02-27] MEDS: INSULIN GLARGINE SOLOSTAR 100 UNITS/ML 3 ML PEN SC SCH ×2 (09:48→21:21)
[2020-02-27] MEDS: INSULIN ASPART 100 UNITS/ML 3 ML PEN SC SCH ×4 (09:49→21:21)
--- NOTE | 2020-02-27 10:40 | Nephrology Progress Note ---
Date of Service February 27, 2020 Assessment & Plan (1) End-stage renal disease (ESRD): ESRD on PD, admitted with generalized weakness, fever and concern for sepsis. Currently being treated with about broad-spectrum antibiotic, no clear source identified except small nonhealing ulcer at right BKA stump. No peritonitis, PD fluid clear, no growth Clinically otherwise stable, blood culture and urine culture so far unremarkable. PD fluid clear, no sign of peritonitis. -- continue peritoneal dialysis tonight as his regular schedule and prescription -- Continue Renvela as phosphate binder, has mild hypercalcemia -- left arm precaution ( has AVF) dose medications for GFR less than 10 -- BHARATHI 07752 units x 1 dose given on 02/25/2020 -- waiting on antibiotic decision and possible rehab discharge. will follow while inpatient (2) Anemia due to chronic kidney disease: (3) Secondary hyperparathyroidism of renal origin: Admission and Anticipated Discharge Date Admission Date: February 23, 2020 Yovanny Manriquez was seen and examined this am. PD went smoothly last night almost 2800 UF. Overall doing better, no N/V, F/C, SOB, CP, abdominal pain, but reports constipation. Waiting for rehab DC. Review of Systems Review of Systems: All systems reviewed & are unremarkable except as noted in HPI & below Physical Exam Constitutional: WD/WN, vitals as above well developed and well nourished; no acute distress Neck: trachea midline Respiratory: normal respiratory effort, lungs clear to auscultation no cough Auscultation: no crackles, no rales and no wheezes Cardiovascular: RRR, no murmur, no edema Extremities: + AV fistula ( L BC AVF with thrill and bruit. PD cath site clean, no tenderness) Gastrointestinal (Abdomen): normal bowel sounds, soft, nontender, no hepatosplenomegaly Percussion/Palpation: abdomen nontender, no guarding and abdomen not rigid Neurologic: moves all extremities and awake; not confused Psychiatric: A+Ox3, euthymic affect Results & Data ([facility]) Vital Signs (Past 12 Hours) Vital Signs Temp Pulse Pulse Resp BP Pulse Ox 02/27/20 08:53 36.4 C L 104 H 16 02/27/20 07:02 36.4 C L 104 H 16 90/56 L 98 02/26/20 23:43 36.7 C 96 H 16 113/71 99 PG Care Time/CCT Total # of Minutes Spent Total Time Spent with Patient: Total time spent is greater than 50% in coordination of care (as documented) at patient's floor/unit and/or counseling patient: Coding Level of Care Code 54147 Subseq Hosp Care Lvl 3 Diagnoses End-stage renal disease (ESRD) N18.6 Anemia due to chronic kidney disease N18.9; D63.1 Secondary hyperparathyroidism of renal origin N25.81
--- NOTE | 2020-02-27 12:20 | Electrocardiogram Report ---
Test Reason : Blood Pressure : / mmHG Vent. Rate : 102 BPM Atrial Rate : 102 BPM P-R Int : 216 ms QRS Dur : 080 ms QT Int : 362 ms P-R-T Axes : -27 091 028 degrees QTc Int : 471 ms Poor data quality, interpretation may be adversely affected Sinus tachycardia Rightward axis Possible Old Septal infarct When compared with ECG of 23-FEB-2020 22:08, No significant change Confirmed by Frederick Peralta ([id number]) on 02/27/2020 12:20:36 PM Referred By: Michael Aaron Confirmed By:Frederick Peralta
--- NOTE | 2020-02-27 16:46 | Hospitalist Progress Note ---
Date of Service February 27, 2020 Assessment & Plan (1) Diabetic peripheral neuropathy: Patient is a 64yo male with a PMHx of DMII with R BKA, CKD on peritoneal dialysis, chronic hyperphosphatemia, and gout who presents as a transfer from [facility] with septic shock and the need for dialysis after presenting with weakness for the last 3 days. Clinically improving with treatment of his UTI. Remains weak but is participating well with PT/OT. Sepsis - received fluid bolus, pressor support, rocephin, and vancomycin at [facility] - infectious source seems likely to be UTI - WBC 9.60 today - blood and urine cultures negative. Urine culture drawn long before the antibiotics were given. - on cefepime 1000mg IV q24h Chest pain - New-onset this AM--patient felt likely due to gas/constipation - EKG done--not concerning for ACS; no ST elevation in contiguous leads; elevation in lead V2 present on previous EKG - Troponin negative - monitor clinically R BKA stump lesion - history of R BKA in 2003 - lesion precludes patient from comfortably using prosthetic leg - lesion with whitish non-viable tissue - Wound care consulted and provided patient with appropriate instructions - Unlikely to be source of sepsis ESRD - patient states he does peritoneal dialysis at home himself every night - nephrology suggested continue dialysis, continue Renvela - phosphate elevated to 6.8 - continue home phosphate binders- calcium acetate 1334mg PO TID - sevelamer carbonate nonformulary Elevated troponins - troponins elevated on admission to 0.075, then downtrended to 0.041 - EKG with sinus tachycardia without signs of ischemia - suspect increased troponin secondary to demand ischemia in the setting of septic shock at [facility] - continue home aspirin 81mg, atorvastatin 20mg daily - echo: normal LV function, EF 60-65%, mild LVH, mitral annular calcification, possibility of significant mitral regurgitation Constipation - Changed Miralax from QD to Q4H until constipation resolves DMII - patient states he uses insulin at home, question of compliance - HgbA1c 8.3 - ISS with a carb control ratio of 7 - lantus adjusted from 15 units bid to 20 units bid - continue home gabapentin 800mg qhs for peripheral neuropathy Question of hepatitis C noted on transfer paperwork - liver enzymes WNL - patient reports he received hepatitis shots due to his dialysis but does not believe he has this history - hepatitis panel negative History of myoclonus, 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 Reich History of gout - continue home allopurinol 100mg qd FEN/GI: dialysis/renal/lactose intolerant/DMII diet DVT prophylaxis: Heparin 5000 units sq q12h CODE STATUS: full code Dispo: Med/Surg - PT/OT recommend SNF--currently awaiting placement Admission and Anticipated Discharge Date Admission Date: February 23, 2020 Supervising Physician Co-Signing Physician Notes Resident Physician Supervision Note: I independently interviewed and examined the patient and verified the cr history and physical, reviewed labs and image studies, discussed the case with the resident Dr. Bey and agree with the findings and care plan. Subjective Patient was having chest pain and abdominal discomfort this AM. He said CP likely due to gas/constipation. Followed up with him in the afternoon and he was doing much better. Denies CP and abdominal discomfort this time around but still unable to move bowels. No further complaints. ROS negative. Review of Systems Constitutional: + weakness; no fever, no chills and no fatigue Respiratory: no cough, no dyspnea and no wheezing Cardiovascular: + chest pain (says feels it's related to constipation/gas); no palpitations Gastrointestinal: + constipation; no abdominal pain, no nausea and no vomiting Physical Exam Constitutional: WD/WN, vitals as above + obese; no acute distress Respiratory: normal respiratory effort, lungs clear to auscultation normal respiratory effort; no labored breathing, no retractions and does not use accessory muscles Cardiovascular: RRR, no murmur, no edema Heart Sounds: normal S1 and normal S2 Gastrointestinal (Abdomen): normal bowel sounds, soft, nontender, no hepatosplenomegaly Results & Data Results & Data ([facility]) Vital Signs (Past 12 Hours) Vital Signs Temp Pulse Pulse Pulse Resp BP Pulse Ox 02/27/20 15:13 36.8 C 91 H 91 H 18 84/49 L 96 02/27/20 08:53 36.4 C L 104 H 16 02/27/20 07:02 36.4 C L 104 H 16 90/56 L 98 Resident Activity Tracking Resident Involvement: Resident Care Provided Care Provided: Adult [facility] Medicine
[2020-02-27] MEDS: GABAPENTIN 800 MG TAB PO SCH (21:14)
[2020-02-28] MEDS ORDERED: FAMOTIDINE 40 MG TABLET PO ONE (01:01)
[2020-02-28] MEDS: CALCIUM CARBONATE 500 MG CHEWABLE TAB PO PRN ×2 (01:20→09:45)
[2020-02-28] MEDS: POLYETHYLENE (MIRALAX) 17 GM PACK PO SCH ×3 (03:04→09:45)
--- NOTE | 2020-02-28 07:07 | Hospitalist Progress Note ---
Date of Service February 28, 2020 Assessment & Plan Admission and Anticipated Discharge Date Admission Date: February 23, 2020 Results & Data Results & Data ([facility]) Vital Signs (Past 12 Hours) Vital Signs Temp Pulse Resp BP Pulse Ox 02/28/20 06:43 36.5 C 95 H 18 107/67 97 02/27/20 23:29 36.9 C 99 H 18 99/66 L 98 02/27/20 19:54 36.8 C 104 H 18 98/63 L
[2020-02-28] MEDS: CEFEPIME 1,000 MG in SYRINGE 0 ML IV SCH (08:26)
[2020-02-28] MEDS: ASPIRIN 81 MG ECTAB PO SCH (08:31)
[2020-02-28] MEDS: SEVELAMER HCL 800 MG TABLET PO SCH ×2 (08:31→13:10)
[2020-02-28] MEDS: allopurinoL 100 MG TAB PO SCH (08:31)
[2020-02-28] MEDS: levETIRAcetam 250 MG TAB PO SCH (08:34)
[2020-02-28] MEDS: INSULIN ASPART 100 UNITS/ML 3 ML PEN SC SCH ×2 (09:36→13:10)
[2020-02-28] MEDS: HEPARIN SOD 5,000 UNIT/0.5 ML VIAL SQ SCH (09:36)
[2020-02-28] MEDS: INSULIN GLARGINE SOLOSTAR 100 UNITS/ML 3 ML PEN SC SCH (09:36)
[2020-02-28] MEDS ORDERED: FAMOTIDINE 20 MG TAB PO SCH (10:00)
--- NOTE | 2020-02-28 10:03 | Discharge Summary ---
Date of Service February 28, 2020 Admission HPI Per Admitting Provider Pt is a 64yo male with a PMHx of DMII with R BKA, CKD on peritoneal dialysis, chronic hyperphosphatemia, gout, myoconus and ?Hep C who presents as a transfer from [facility] with septic shock and the need for dialysis after presenting with weakness for the last 3 days. Pt states he had been receiving PT recently and felt like his mobility had improved significantly as a result of that. However, for the last 3 days he has been feeling very weak and could not make it to the bathroom today so he presented to [facility]. States he has been having some dysuria with lower abdominal pain as well as this nonhealing ulcer on his right stump, has a right below the knee amputation. Has not taken his medications for the last day or so. Lives alone at home, moves around with his wheelchair. Unable to use his walker. States a close female friend checks in on him. No alcohol use, stopped smoking 23 years ago, no recreational drug use. Admission Exam Per Admitting Provider General: Alert, oriented. No acute distress, obese gentleman laying in bed. Skin: ulcer with noted fatty tissue exposed noted on R BKA stump Psych: Appropriate mood and affect Neuro: No gross deficits HEENT: NC/AT Chest: Nontender to palpation. CV: RRR, Normal s1, s2. No murmurs appreciated, sounds decreased due to habitus Resp: Breath sounds clear bilaterally but decreased due to habitus, no increased effort of breathing. Abdomen: Soft, tender in lower abdominal quadrants. No guarding. Extremities: R leg amputated below the knee Principal Diagnosis Sepsis secondary to UTI Discharge Exam Constitutional WD/WN, vitals as above + obese; no acute distress Respiratory normal respiratory effort, lungs clear to auscultation normal respiratory effort; no labored breathing, no retractions and does not use accessory muscles Cardiovascular RRR, no murmur, no edema Heart Sounds: normal S1 and normal S2 Gastrointestinal (Abdomen) normal bowel sounds, soft, nontender, no hepatosplenomegaly Musculoskeletal Right leg amputated below knee, ulcer on stump Discharge Data Allergies Allergy/AdvReac Type Severity Reaction Status Date / Time amoxicillin [From Augmentin] Allergy Verified 12/08/19 11:45 clavulanic acid Allergy Verified 12/08/19 11:45 [From Augmentin] lactose Allergy Verified 12/08/19 11:45 morphine Allergy Verified 12/08/19 11:45 sulfamethoxazole Allergy Verified 12/08/19 11:45 [From Bactrim] trimethoprim [From Bactrim] Allergy Verified 12/08/19 11:45 primidone AdvReac Severe dizziness Verified 12/08/19 11:45 Consultations 02/23/20 23:07 Consult Nephrology Routine Hospital Course (1) Sepsis due to urinary tract infection: Sepsis sec to UTI Pressure ulcer of R stump at least stage III, POA Patient was transferred to [facility] from [facility] due to sepsis secondary to likely UTI and need for dialysis after presenting with weakness for 3 days. He was treated with IV cefepime and progressed well. He was also evaluated by PT/OT who recommended he be discharged to inpatient rehab or SNF. He was also found to have an ulcer on his right BKA stump due to ill-fitting prosthesis. Was seen by wound care. Further management on new prosthesis need and wound care at Rehab facility. Case Management worked with the patient and he will be transferred to [facility] upon d/c from [facility]. (2) Secondary hyperparathyroidism of renal origin: (3) Anemia due to chronic kidney disease: (4) End-stage renal disease (ESRD): (5) Diabetic peripheral neuropathy: (6) Dialysis patient: Total Time Total Time Spent Total Time Spent (In Minutes): See Attending Attestation Discharge Plan Discharge Items Patient Disposition: Transfer Inpatient Rehab Fac Reason For Visit: SEPSIS Discharge Diagnosis: Sepsis seconday to UTI Activity: Per Instructions section Non-emergency contact: Primary Care Provider Call non-emergency contact if: your symptoms worsen and your temperature is above 101 Follow-up/Referrals: RICK SHAIKH PA [Primary Care Provider] - Diet: Carb Consistent or DM2 [facility] Attending Provider Instructions: 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 You were found to have sepsis caused by a urinary tract infection and you were restarted on peritoneal dialysis. You progressed well on IV antibiotics during your stay. You were also found to have an ulcer at the site of your amputation below your right knee, which was thought to be caused by an ill-fitting prosthetic. You will be transferred to [facility] rehab facility for continued care and help with your prosthesis fit. You did not move your bowels for four days and received Miralax with positive results the night before discharge. Pending Studies at Discharge: No Stand-Alone Forms: My [facility] Skilled Items Patient informed of condition?: Yes DNR: No Discharge Level of Care: Acute rehab Communicable Disease: No Discharge Prognosis: Stable Lines: None Urinary Catheter: No Medications and DC Order Prescriptions: Continued Velphoro 500 mg tablet,chewable 500 mg PO TID Qty: 270 RF: 3 nystatin 100,000 unit/gram cream 1 appln TOP TID Qty: 30 RF: 0 allopurinol 100 mg tablet 100 mg PO DAILY RF: 0 pentoxifylline 400 mg tablet extended release 400 mg PO BID RF: 0 atorvastatin 20 mg tablet 20 mg PO DAILY RF: 0 acetaminophen 325 mg capsule 650 mg PO ONCE PRN (Reason: shoulder / back pain) RF: 0 Dialyvite 800 0.8 mg tablet 1 tab PO DAILY RF: 0 aspirin [Adult Aspirin Regimen] 81 mg tablet,delayed release (DR/EC) 81 mg PO DAILY RF: 0 gabapentin 800 mg tablet 800 mg PO HS RF: 0 bisacodyl 5 mg PO DAILY RF: 0 Humalog Mix 50-50 Insuln U-100 100 unit/mL (50-50) suspension 14 - 30 units SQ TID RF: 0 insulin detemir U-100 100 unit/mL (3 mL) insulin pen 30 - 40 units SQ .COMPLEX RF: 0 calcium acetate(phosphat bind) 667 mg capsule 1,334 mg PO TID RF: 0 sevelamer carbonate 800 mg tablet 800 mg PO TID RF: 0 Discharge Orders: Discharge Order (Routine); Ordered 02/28/20 Ordered By: Tutu Bey Admission Data Admit Date/Time: 02/23/20 20:52 Attending Provider: Malka Cabrera Admit Provider: Michael Aaron Primary Care Provider: RICK SHAIKH Other Providers: Michael Aaron ; Brayden Gonzalez ; Guerita Lozano ; [facility] Supervising Physician Co-Signing Physician Notes Resident Physician Supervision Note: I independently interviewed and examined the patient and verified the cr history and physical, reviewed labs and image studies, discussed the case with the resident Dr. Bey and agree with the findings and care plan. Time spent in discharge 35 min Resident Activity Tracking Resident Involvement: Resident Care Provided Care Provided: Adult Hospital Medicine
--- NOTE | 2020-02-28 10:36 | Nephrology Progress Note ---
Date of Service February 28, 2020 Assessment & Plan (1) End-stage renal disease (ESRD): ESRD on PD, admitted with generalized weakness, fever and concern for sepsis. Currently being treated with about broad-spectrum antibiotic, no clear source identified except small nonhealing ulcer at right BKA stump. No peritonitis, PD fluid clear, no growth Clinically otherwise stable, blood culture and urine culture so far unremarkable. PD fluid clear, no sign of peritonitis. -- continue peritoneal dialysis tonight as his regular schedule and prescription, if DC to [facility], will continue PD as his regular prescription. -- Continue Renvela as phosphate binder, has mild hypercalcemia -- left arm precaution ( has AVF) dose medications for GFR less than 10 -- BHARATHI 97939 units x 1 dose given on 02/25/2020 -- waiting on antibiotic decision and possible rehab discharge. will follow while inpatient Admission and Anticipated Discharge Date Admission Date: February 23, 2020 Yovanny Manriquez was seen and examined this am. PD has been without complications, decent UF, BP, volume status acceptable. Overall doing well, no N/V, F/C, SOB, CP, abdominal pain.. Waiting for rehab DC. Review of Systems Review of Systems: All systems reviewed & are unremarkable except as noted in HPI & below Physical Exam Constitutional: well developed and well nourished; no acute distress Respiratory: normal respiratory effort, lungs clear to auscultation Cardiovascular: RRR, no murmur, no edema Extremities: + AV fistula (left BC AVF with thrill and bruit) Musculoskeletal: rt BKA with small ulceration at stump. Neurologic: moves all extremities and awake; not confused Psychiatric: A+Ox3, euthymic affect Results & Data ([facility]) Vital Signs (Past 12 Hours) Vital Signs Temp Pulse Resp BP Pulse Ox 02/28/20 08:29 36.7 C 99 H 18 02/28/20 06:43 36.5 C 95 H 18 107/67 97 02/27/20 23:29 36.9 C 99 H 18 99/66 L 98 PG Care Time/CCT Total # of Minutes Spent Total Time Spent with Patient: Total time spent is greater than 50% in coordination of care (as documented) at patient's floor/unit and/or counseling patient: Coding Level of Care Code 58024 Subseq Hosp Care Lvl 2 Diagnoses End-stage renal disease (ESRD) N18.6
== END 2020-02-28 17:23 | DRG 871 ==
LOC: SUATTDRO 20:52 → 2S 20:52 → 3N 02-26 08:51